=== PATIENT | female | born 1955 | race Caucasian/White ===

== ENCOUNTER → 2017-08-25 16:47 | Outpatient (CLI) | payer OTHER ==
[2014-11-28 23:49] VITALS: BMI 39.1
[~2017-08-25 16:47] MED LIST: DIOVAN HCT 80-11 TAB PO; LEXAPRO10 MG PO; LEXAPRO5 MG PO; LIPITOR20 MG PO; PRILOSEC20 MG PO; XARELTO20 MG PO
== END | disposition home or self-care (01) ==
LOC: D.MAMMO 11:30
DX: Z12.31 Encounter for screening mammogram for malignant neoplasm of breast (principal)

== ENCOUNTER → 2017-09-28 16:57 | Outpatient (CLI) | payer OTHER ==
[2014-11-28 23:49] VITALS: BMI 39.1
== END | disposition home or self-care (01) ==
LOC: D.MAMMO 13:30
DX: R92.8 Other abnormal and inconclusive findings on diagnostic imaging of breast (principal)

== ENCOUNTER → 2017-11-17 18:39 | Outpatient (CLI) | payer OTHER ==
[2014-11-28 23:49] VITALS: BMI 39.1
== END | disposition home or self-care (01) ==
LOC: D.MAMMO 08:00
DX: R92.0 Mammographic microcalcification found on diagnostic imaging of breast (principal)

== ENCOUNTER 2018-05-11 05:48 | Day surgery (SDC) | payer OTHER ==
[~2018-05-11] VITALS: Ht 165.1 cm; Wt 111.1 kg
--- NOTE | ~2018-05-11 | OP ---
PATIENT NAME: MINDY HUNT MEDICAL RECORD: [id number] :53 LOCATION:D[facility] ADMISSION DATE: SURGEON: EDVIN ARMAS MD DATE OF OPERATION: 05/11/2018 PREOPERATIVE DIAGNOSES: 1. Right breast ductal carcinoma in situ. 2. Hypertension. 3. Hypercholesterolemia. 4. Chronic obstructive pulmonary disease. POSTOPERATIVE DIAGNOSES: 1. Right breast ductal carcinoma in situ. 2. Hypertension. 3. Hypercholesterolemia. 4. Chronic obstructive pulmonary disease. PROCEDURE: Needle localization, right lumpectomy. SURGEON: Edvin Armas MD REPORT OF PROCEDURE: The patient's right breast had been treated with 2 separate needle localization wires preoperatively. The patient was taken to the operating room and the right breast was prepped and draped in sterile fashion. A skin incision was made on the right superolateral breast, through the area of one of the wire sites. Using electrocautery, we dissected through the subcutaneous tissue and laterally out to the second wire site. This wire was eviscerated through the wound. At this point, we began our dissection down through the subcutaneous tissues and around the superior lateral aspect of the breast. Upon performing this, we encountered a pocket of tissue with some murky-appearing fluid that did not appear to be infectious and did not have an odor. Cultures were taken x2. There was a large pocket that was present. I felt this was most likely warehouse representative of an old pocket that remained from a hematoma that developed in this area after the sterotactic biopsy. We irrigated out the fluid. We then continued our dissection around this pocket until it was completely excised with our specimen. We followed the wires down through the subcutaneous tissues and breast tissue until we got down close to the pectoral muscle. As we came completely around these wires, we were able to remove a large core of tissue from the right lateral breast. This tissue was marked appropriately and sent off to radiology and to pathology. The subcutaneous tissues were inspected and any bleeding that was found was treated with electrocautery. We then irrigated out the wound with sterile water. A total of 10 mL of 0.5% Marcaine with epinephrine was infused into the surrounding tissues. Then, the subcutaneous tissues were reapproximated with interrupted 3-0 Vicryl and the skin was closed with running subcutaneous 5-0 Monocryl. COMPLICATIONS: None. CONDITION: Stable. ANESTHESIA: General endotracheal and local. BLOOD LOSS: 30 mL. TRANSINT:[id number] Voice Confirmation ID: [id number] DOCUMENT ID: [id number] OPERATIVE REPORT [id number] MINDY HUNT CHRISTIAN MD CC: [id number] DICTATION DATE: 05/11/18 1140 MOTORCYCLE TESTER: 05/11/[address] [facility] [address] [id number]
[~2018-05-11 05:48] MED LIST changes: +EDARBYCLOR 40-1 EACH; +MOBIC7.5 MG PO; +NORCO 7.5/325 T1 TA1
[2018-05-11 06:17] LABS: BASOPHILS 0.6 % (0-2); EOSINOPHILS 2.6 % (0-7); HEMATOCRIT 43.9 % (36.0-48.0); HEMOGLOBIN 14.7 g/dL (12-16); IMMATURE GRANULOCYTES 0.2 % (0-5); LYMPHOCYTES 44.3 % (15-50); MCH 31.3 pg (26.0-34.0); MCHC 33.5 g/dL (31.0-37.0); MCV 93.4 fL (80.0-100.0); MEAN PLATELET VOLUME 10.8 fL (7.4-10.4); MONOCYTES 12.3 % (2-11); PLATELET COUNT 230 10x3/uL (130-400); RDW 13.3 % (11.5-14.5); WBC 8.6 10x3/uL (4.8-10.8)
[2018-05-11 06:29] LABS: ANION GAP 14.3 mmol/L (8-16); CALCIUM 8.8 mg/dL (8.5-10.1); CARBON DIOXIDE 26.7 mmol/L (21.0-32.0); CREATININE - SERUM 0.9 mg/dL (0.6-1.3)
[2018-05-11] MEDS ORDERED: VENTOLIN HFA18 GM INH (07:09)
[2018-05-11 08:27] VITALS: BP 163/79; Ht 165.1 cm; Wt 111.1 kg
[2018-05-11] MEDS ORDERED: NORCO 10-325 TA1 TAB PO (11:34)
== END 2018-05-11 14:45 | disposition home or self-care (01) ==
LOC: D.OPS 05:48 → D.PAN 08:00 → D.MAMMO 08:00 → D.OPS 08:00
PROVIDERS: Surgery
DX: C50.911 Malignant neoplasm of unspecified site of right female breast (principal); I10 Essential (primary) hypertension; J44.9 Chronic obstructive pulmonary disease, unspecified

== ENCOUNTER 2019-01-31 08:00 | Outpatient (CLI) | payer OTHER ==
[2018-05-11 08:27] VITALS: BMI 40.8
[~2019-01-31 08:00] MED LIST changes: +NORCO 10-325 TA1 TAB PO; +VENTOLIN HFA18 GM INH
== END 2019-01-31 23:59 | disposition home or self-care (01) ==
LOC: D.MAMMO 08:00
PROVIDERS: ATTEND Internal Medicine Hematology & Oncology
DX: C50.111 Malignant neoplasm of central portion of right female breast (principal)

== ENCOUNTER → 2019-02-15 16:46 | Outpatient (CLI) | payer OTHER ==
[2018-05-11 08:27] VITALS: BMI 40.8
== END | disposition home or self-care (01) ==
LOC: D.MAMMO 08:00
PROVIDERS: ATTEND Internal Medicine Hematology & Oncology
DX: N63.23 Unspecified lump in the left breast, lower outer quadrant (principal); N63.24 Unspecified lump in the left breast, lower inner quadrant

== ENCOUNTER 2019-10-23 09:44 | Day surgery (SDC) | payer MEDICARE, OTHER ==
[~2019-10-23] VITALS: Ht 165.1 cm; Wt 110.5 kg
[2019-10-23] MEDS ORDERED: PROVENTIL/2.5 MG/3 M INH (10:33)
[2019-10-23] MEDS ORDERED: COZAAR50 MG (10:34)
[2019-10-23] MEDS ORDERED: HYDROCHLOROTH12.5 M1 PO (10:34)
[2019-10-23 10:40] VITALS: BP 187/111; Ht 165.1 cm; Wt 110.5 kg
[2019-10-23 10:51] LABS: HEMATOCRIT 44.2 % (36.0-48.0); HEMOGLOBIN 14.3 g/dL (12-16); MCH 30.2 pg (26.0-34.0); MCHC 32.4 g/dL (31.0-37.0); MCV 93.4 fL (80.0-100.0); RBC 4.73 10x6/uL (4.00-5.40); RDW 13.5 % (11.5-14.5); WBC 7.4 10x3/uL (4.8-10.8)
--- NOTE | 2019-10-24 16:01 | OP ---
PATIENT NAME: MINDY HUNT MEDICAL RECORD: [id number] :53 LOCATION:D.[facility] ADMISSION DATE: SURGEON: DEMARIO MONGE MD DATE OF OPERATION: 10/23/2019 PREOPERATIVE DIAGNOSIS: Fecal occult blood positivity, also history of colon polyps. POSTOPERATIVE DIAGNOSES: 1. Fecal occult blood positivity, also history of colon polyps. 2. Hiatal hernia. 3. 15 minute colorectal polyps. 4. Two adenomatous-appearing colonic polyps. One was 2.0 cm flat polyp and it could only be seen with narrow band imaging. The other was a 6 mm polyp, which was sessile. PROCEDURES: 1. Esophagogastroduodenoscopy with antral biopsies. 2. Total colonoscopy to cecum. 3. Hot biopsy forceps polypectomies times 2. 4. Argon plasma coagulation ablation of 15 colorectal polyps. SURGEON: Demario Monge MD ECMO SPECIALIST: None. BLOOD LOSS: Minimal. ANESTHESIA: IV sedation. The colorectal polyps that were not biopsied and were ablated were minute and perhaps they were hyperplastic, perhaps they are adenomatous, but they were very small and for this reason, I really did not need it to send them for pathologic examination. ENDOSCOPIC COURSE: The patient was conveyed to endoscopy suite electively on 10/23/2019. IV sedation was induced by the anesthesia staff. A bite block was inserted. A gastroscope was inserted into the mouth. It was advanced easily into the hypopharynx. The esophagus was easily intubated as were the stomach and duodenum. Upon withdrawal, retroflexed and angulus views were obtained. Antral biopsies were obtained. The endoscope was then withdrawn under direct vision. The patient was turned to 180 degrees and placed in the Pina position. A digital rectal examination was performed. A colonoscope was inserted through the anus. It was easily advanced to the cecum. The prep was adequate. I slowly withdrew the endoscope. I irrigated and aspirated extensively. I utilized normal imaging as well as narrow band imaging. The pullback was greater than a 20-minute pullback. The most worrisome of the polyps was a flat polyp, which could account for the patient's fecal occult blood positivity. Both it and the other sessile polyps were removed in their entireties utilizing the hot biopsy forceps polypectomy technique. A number of minute polyps were noted. There were a 15 of these and they were treated with the argon plasma media executive utilizing the right colon setting in OPERATIVE REPORT [id number] MINDY HUNT the forced mode. A retroflexed view was obtained in the rectum. I then unretroflexed the scope and removed it under direct vision. I will see the patient in my office in 2-3 weeks. I will plan for her next colonoscopy to take place in 3 years. TRANSINT:[id number] Voice Confirmation ID: [id number] DOCUMENT ID: [id number] DEMARIO MONGE MD at 1601 CC: FILIBERTO SNYDER [id number] DICTATION DATE: 10/23/19 1520 POWER PLANT OPERATOR: 10/24/19 0015 [facility] 10/23/19 [facility] [address] [place] [address]
== END 2019-10-23 16:10 | disposition home or self-care (01) ==
LOC: D.OPS 09:44
PROVIDERS: Anesthesiology; ATTEND Surgery
DX: R19.5 Other fecal abnormalities (principal); K44.9 Diaphragmatic hernia without obstruction or gangrene; K63.5 Polyp of colon; E78.2 Mixed hyperlipidemia; J44.9 Chronic obstructive pulmonary disease, unspecified; K21.9 Gastro-esophageal reflux disease without esophagitis; I10 Essential (primary) hypertension; Z72.0 Tobacco use

== ENCOUNTER → 2020-01-23 15:30 | Outpatient (CLI) | payer MEDICARE, OTHER ==
[2019-10-23 10:40] VITALS: BMI 40.5
[~2020-01-23 15:30] MED LIST changes: +COZAAR50 MG; +HYDROCHLOROTH12.5 M1 PO; +PROVENTIL/2.5 MG/3 M INH
== END | disposition home or self-care (01) ==
LOC: D.MAMMO 10:30
PROVIDERS: ATTEND Family Medicine
DX: N63.23 Unspecified lump in the left breast, lower outer quadrant (principal)